=== PATIENT | female | born 1955 | race African-American/Black ===

== ENCOUNTER 2025-05-30 06:15 | Inpatient (IN) | payer OTHER ==
[~2025-05-30] VITALS: Ht 165.1 cm; Wt 72.1 kg
[2025-05-30 06:53] LABS: PLATELET COUNT (AUTO) 255 K/uL (150-450); RED BLOOD CELL COUNT(AUTO) 5.13 MIL/uL (4.0-5.2); RED CELL DISTRIBUTION WIDTH 14.7 % (11.5-15.0); WHITE BLOOD COUNT (AUTO) 4.9 K/uL (4.3-11.0)
[2025-05-30 07:01] LABS: CALCIUM, SERUM 9.3 mg/dL (8.5-10.1); CREATININE 1.0 mg/dL (0.6-1.3); SODIUM SERUM 142 mmol/L (136-145); UREA NITROGEN, BLOOD 11 mg/dL (7-18)
[2025-05-30 07:02] LABS: SERUM AMMONIA 1 umol/L (11-32)
[2025-05-30 07:05] LABS: INR 1.05 (0.91-1.10)
[2025-05-30 07:07] LABS: ALCOHOL, BLOOD < 3 mg/dL (0-10); ASPARTATE AMINOTRANSFERASE 17 U/L (15-37); TOTAL PROTEIN, SERUM 7.7 g/dL (6.4-8.2)
[2025-05-30] MEDS ORDERED: ONDANSETRON HCL/PF 4 MG/2 ML VIAL IVP PRN (10:30)
[2025-05-30] MEDS ORDERED: MAG HYDROX/AL HYDROX/SIMETH 30 ML UDC PO PRN (10:30)
[2025-05-30] MEDS ORDERED: MAGNESIUM HYDROXIDE 30 ML UDC PO PRN (10:30)
[2025-05-30] MEDS ORDERED: Z GUARD REMEDY 4 OZ OINT TP PRN (10:30)
[2025-05-30] MEDS ORDERED: ACETAMINOPHEN 325 MG TABLET PO PRN (10:30)
[2025-05-30] MEDS ORDERED: ENOXAPARIN SODIUM 40 MG/0.4 ML DISP.SYRIN SQ ONE (11:02)
[2025-05-30] MEDS ORDERED: POTASSIUM CHLORIDE 20 MEQ TAB.PRT.SR PO ONE (11:02)
[2025-05-30] MEDS: POTASSIUM CHLORIDE 20 MEQ TAB.PRT.SR PO ONE (11:07)
[2025-05-30] MEDS: ENOXAPARIN SODIUM 40 MG/0.4 ML DISP.SYRIN SQ SCH (11:08)
[2025-05-30 13:45] VITALS: BP 148/62; TEMP 96.8; O2SAT 100
[2025-05-30 16:00] VITALS: BP 148/62; TEMP 96.8; O2SAT 100
[2025-05-30 18:58] LABS: LDL 123.0 mg/dL (0-99)
[2025-05-30 20:00] VITALS: BP 150/72; TEMP 97.9; O2SAT 99
[2025-05-30] MEDS: LORAZEPAM 1 MG TABLET PO ONE (22:09)
[2025-05-31 04:00] VITALS: BP 137/63; TEMP 97.7; O2SAT 99
[2025-05-31 06:25] LABS: CALCIUM, SERUM 8.8 mg/dL (8.5-10.1); CREATININE 0.9 mg/dL (0.6-1.3); PHOSPHORUS 3.5 mg/dL (2.5-4.9); SODIUM SERUM 141.0 mmol/L (136-145); UREA NITROGEN, BLOOD 13.0 mg/dL (7-18)
[2025-05-31 08:00] VITALS: BP 139/57; TEMP 98.4; O2SAT 100
[2025-05-31 08:14] LABS: PLATELET COUNT (AUTO) 236 K/uL (150-450); RED BLOOD CELL COUNT(AUTO) 4.94 MIL/uL (4.0-5.2); RED CELL DISTRIBUTION WIDTH 14.5 % (11.5-15.0); WHITE BLOOD COUNT (AUTO) 5.5 K/uL (4.3-11.0)
[2025-05-31] MEDS: IV NS 0.9% 1,000 ML IV PRN (10:55)
[2025-05-31 16:00] VITALS: BP 152/77; TEMP 97.7; O2SAT 97
[2025-05-31 20:00] VITALS: BP 158/74; TEMP 97.2; O2SAT 99
[2025-06-01 04:00] VITALS: BP 157/61; TEMP 97.3; O2SAT 99
[2025-06-01 08:00] VITALS: BP 144/72; TEMP 99.5; O2SAT 100
[2025-06-01 16:00] VITALS: BP 154/64; TEMP 99.5; O2SAT 100
[2025-06-01 20:00] VITALS: BP 157/62; TEMP 97.9; O2SAT 100
[2025-06-02 04:00] VITALS: BP 125/75; TEMP 98.1; O2SAT 100
[2025-06-02 08:00] VITALS: BP 143/76; TEMP 97.7; O2SAT 100
[2025-06-02 16:00] VITALS: BP 116/73; TEMP 97.1; O2SAT 98
[2025-06-02 20:00] VITALS: BP 148/61; TEMP 98.2; O2SAT 100
[2025-06-03 04:00] VITALS: BP 156/80; TEMP 97.5; O2SAT 100
[2025-06-03 10:55] VITALS: BP 141/94; TEMP 97.5; O2SAT 99
[2025-06-03 18:17] VITALS: BP 130/94; TEMP 97.7; O2SAT 99
[2025-06-03 20:00] VITALS: BP 134/64; TEMP 98.4; O2SAT 96
[2025-06-04 04:00] VITALS: BP 128/75; TEMP 98; O2SAT 96
[2025-06-04 08:00] VITALS: BP 136/63; TEMP 98.2; O2SAT 96
== END 2025-06-04 15:03 | disposition home or self-care (01) | DRG 72 ==
LOC: ER 06:28 → EDBD 06:28 → EDSEX 06:28 → MEDSG1 12:49
PROVIDERS: ADMIT Internal Medicine; ATTEND Internal Medicine
PROC: 05HB33Z Insertion of Infusion Device into Right Basilic Vein, Percutaneous Approach (ICD-10-PCS; principal; 2025-06-01)
DX: G93.41 Metabolic encephalopathy (principal); F03.90 Unspecified dementia, unspecified severity, without behavioral disturbance, psychotic disturbance, mood disturbance, and anxiety; E87.6 Hypokalemia; Z82.49 Family history of ischemic heart disease and other diseases of the circulatory system; Z83.3 Family history of diabetes mellitus
CPT/HCPCS: 36410; 36415; 70450-TC; 70551-TC; 71045-TC; 80048-TC; 80061-TC; 80076-TC; 82140-TC; 82607-TC; 82962-TC; 83735-TC; 83921; 84100-TC; 84425; 84443-TC; 85025-TC; 85730-TC; 97112-TC; 97116-TC; 97530-TC; 97535-TC; A4223; A6403; G0378; G0480; J1650; J7030